=== PATIENT | female | born 1960 | race Caucasian/White ===

== ENCOUNTER 2023-11-02 07:39 | Day surgery (SDC) | payer MEDICAID ==
[~2023-11-02] VITALS: Ht 162.6 cm; Wt 57.2 kg
[2023-11-02] MEDS ORDERED: MIDAZOLAM HCL 5 MG/5 ML VIAL ONE (08:24)
[2023-11-02] MEDS ORDERED: MEPERIDINE 100 MG INJ. 100 MG/ML VIAL ONE (08:24)
[2023-11-02 12:02] VITALS: BP_SYST 143; PULSE 76; RESP 16; TEMP 97.6; O2SAT 100
== END 2023-11-02 09:39 | disposition home or self-care (01) ==
LOC: SOR 07:39 → SMU 07:40 → EDSEX 08:30 → SOR 09:39
PROVIDERS: ATTEND Student in an Organized Health Care Education/Training Program
DX: Z12.11 Encounter for screening for malignant neoplasm of colon (principal); K57.30 Diverticulosis of large intestine without perforation or abscess without bleeding; K64.8 Other hemorrhoids
CPT/HCPCS: 45378; 99152; G0378; J2250; J2175